=== PATIENT | male | born 1955 | race Caucasian/White ===

== ENCOUNTER 2016-11-25 21:57 | Observation (INO) | payer BC, SELFPAY ==
--- NOTE | ~2016-11-25 | HP ---
History And Physical [place] [id number] [facility] [place]. [address] NAME: MIKE DRISCOLL : 59 STATUS : ADM Samanta PAT#: [id number] AGE: 61 ADM/REG DATE : 11/25/16 MR#: [id number] REPORT SERV DATE: 11/26/16 DICTATED BY: JILLIAN THOMPSON DATE: 11/26/16 REPORT STATUS : Draft TRANSCRIBED BY: MODL DATE: 11/26/16 DATE OF ADMISSION: 11/25/2016 POINT OF ENTRY: [facility] Emergency Department. PRIMARY CLEARING INSPECTOR: Dr. Moore. CHIEF COMPLAINT: Chest pain. HISTORY OF PRESENT ILLNESS: Mr. Driscoll is a 61-year-old gentleman with history of hypertension, hyperlipidemia as well as coronary artery disease with recent rdb-DU-fyhepahlx myocardial infarction, who presents to the emergency department today with the acute onset of right-sided chest pain, beginning Saturday morning. The patient was recently admitted to the Cardiology Service in end of August for reports of right-sided chest pain. At that time, he was found to have mild troponin elevation of approximately 0.14. 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 Aggressive medical management was recommended. The patient states that since then he has been compliant with his medications and has actually quit smoking. He developed the acute onset of right-sided chest pain, described as pressure as well as like a fist in his chest. He denies any radiation associated shortness of breath, diaphoresis, nausea, or palpitations. He states that the location and description of the pain are very similar to what occurred in August. Initial evaluation in the emergency department notable for EKG that was nonischemic. Troponin mildly elevated at 0.08. Remainder of his labs were unremarkable. CT scan of the abdomen and pelvis was undertaken given reports of right-sided chest pain to rule out a GI etiology. It was notable for infrarenal abdominal aortic aneurysm of approximately 4.5 cm that is thrombosed and/or occluded in the lumen below the level of the left renal artery. The patient was subsequently admitted to the Hospitalist Service for further evaluation and management. The patient denies any fevers, night sweats, chills, cough, sputum production, shortness of breath, abdominal pain, nausea, vomiting, diarrhea, constipation, dysuria, melena, or hematochezia. When queried specifically, he does admit to what appears to be some lower extremity claudication with exertion as well as he does readily admit to some longstanding troubles with erectile dysfunction. COMPREHENSIVE REVIEW OF SYSTEMS: Otherwise negative, unless listed in the history of present illness. PREVIOUS MEDICAL HISTORY: History And Physical [address] [address] NAME: MIKE DRISCOLL : 59 STATUS : ADM Samanta PAT#: [id number] AGE: 61 ADM/REG DATE : 11/25/16 MR#: [id number] REPORT SERV DATE: 11/26/16 DICTATED BY: JILLIAN THOMPSON DATE: 11/26/16 REPORT STATUS : Draft TRANSCRIBED BY: MAI DATE: 11/26/16 1. Hypertension. 2. Hyperlipidemia. 3. Coronary artery disease with recent suv-HT-olgwcdfen myocardial infarction. SURGICAL HISTORY: Bilateral inguinal hernia repair as a child. ALLERGIES: REPORTEDLY TO STATINS. HOME MEDICATIONS: Pending at the time of dictation. SOCIAL HISTORY: He is a former smoker, quit in August after his admission to our hospital. Does binge drink on the weekends. Drinks approximately eight to nine beers on Saturday and Saturday nights. Denies illicits. FAMILY MEDICAL HISTORY: Mother with history of hiatal hernia. Father with history of alcoholism. Siblings with coronary artery disease and peripheral vascular disease. LABORATORY DATA AND IMAGIN. White count is 8.5, hemoglobin is 14.0, hematocrit is 40.7, and platelet count is 187. INR 1.0. 2. Sodium is 141, potassium 4.3, chloride 103, carbon dioxide 32, BUN 14, creatinine 0.98, glucose is 107, calcium is 8.3, magnesium is 2.0. 3. Lipase is 91. 4. Troponin is 0.08. 5. EKG per my review shows normal sinus rhythm. No evidence of any acute ischemia or infarction. 6. Urinalysis: Specific gravity is 1.010. No evidence of any infection. 7. Chest x-ray per my review shows no acute cardiopulmonary abnormality. 8. CT scan of the abdomen and pelvis shows infrarenal abdominal aortic aneurysm, approximately 4.5 cm in diameter that is occluded and/or thrombosed in the lumen at the level below the left renal artery. PHYSICAL EXAMINATION: VITAL SIGNS: Temperature is 97.8 degrees Fahrenheit, pulse is 73, respirations 18, saturating 96% on room air, blood pressure is 144/79. On recheck, it is now 122/73. GENERAL: The patient is awake, alert, in no acute distress, resting comfortably in bed. He is a well-developed, well-nourished, elderly male. HEENT: Atraumatic and normocephalic. Moist mucous membranes. Pupils equal, round, reactive to light and accommodation. Extraocular movements are intact. No scleral icterus. NECK: No jugular venous distention. No carotid bruits. CARDIAC: Regular rate and rhythm. No murmurs, rubs, or gallops. Normal S1 and S2. LUNGS: Clear to auscultation bilaterally. No wheezes, rhonchi, or crackles. ABDOMEN: Soft, nontender, and nondistended with good bowel sounds. No rebound, guarding, or rigidity. I do not appreciate any palpable pulsation in the lower abdomen or any abdominal bruits. EXTREMITIES: Warm and well perfused. No cyanosis, clubbing, or edema. He has 1+ DP/PT pulses. History And Physical [address] [address] NAME: MIKE DRISCOLL : 59 STATUS : ADM Samanta PAT#: [id number] AGE: 61 ADM/REG DATE : 11/25/16 MR#: [id number] REPORT SERV DATE: 11/26/16 DICTATED BY: JILLIAN THOMPSON DATE: 11/26/16 REPORT STATUS : Draft TRANSCRIBED BY: MODHarsh DATE: 11/26/16 SKIN: Warm and dry, except for noted above. PSYCH: Affect appropriate. NEURO: Alert and oriented x3. Cranial nerves II through XII grossly intact. Speech is normal. Gait not assessed. ASSESSMENT: Mr. Driscoll is a 61-year-old gentleman with a history of coronary artery disease with recent jvw-VV-tnojrpgqq myocardial infarction, being medically managed, who presents with recurrent right-sided chest pain. PROBLEM LIST: 1. Wol-GV-iamvcbzon myocardial infarction. 2. Occluded infrarenal abdominal aortic aneurysm. 3. Hypertension. 4. Hyperlipidemia. PLAN: 1. Oyc-QX-gtovaecju myocardial infarction. We will trend out q.6 hours cardiac enzymes. We will continue aspirin as well as p.r.n. nitroglycerin. We will resume his home medications once confirmed. We will consult the patient's primary cable operator for assistance. However, given recent cardiac catheterization showing mild nonobstructive coronary artery disease other than the chronic total occlusion of the mid RCA, I will not currently heparinize this patient at this time. 2. Occluded infrarenal abdominal aortic aneurysm. Dr. Perea of Vascular Surgery was contacted by the ER. He recommends no immediate intervention. We will follow up his consultation recommendations in the morning. 3. Hypertension. Continue the patient's home medications once confirmed. 4. Hyperlipidemia. Continue the patient's home medications once confirmed. 5. DVT prophylaxis. Lovenox subcutaneous. CODE STATUS: The patient wished to be full code. JCB/MODL Jillian Thompson MD / [id number] CC: An Wesley M.D. Murtaza Oliver M.D.
--- NOTE | ~2016-11-25 | DS ---
Discharge Summary [facility] [address] [place]. [address] NAME: MIKE DRISCOLL : 59 STATUS : DIS Samanta PAT#: [id number] AGE: 61 ADM/REG DATE : 11/25/16 MR#: [id number] REPORT SERV DATE: 11/27/16 DICTATED BY: AN KNOWLES DATE: 11/26/16 REPORT STATUS : Draft TRANSCRIBED BY: MODL DATE: 11/26/16 ADMISSION DATE: 11/25/2016 DISCHARGE DATE: 11/26/2016 DIAGNOSES OF DISCHARGE: 1. Right flank pain radiating to the back, likely musculoskeletal, resolved. 2. History of coronary artery disease with prior ldk-PD-znauiwi myocardial infarction with troponin elevation, unchanged, likely chronic. 3. Abdominal aortic aneurysm, infrarenal, occluded. No intervention from vascular perspective. Follow up as an outpatient. 4. Hyperlipidemia. 5. Hypertension. 6. Hypothyroidism. CONSULTANTS ON THE CASE: Dr. Tati Moore, Cardiology, as well as Dr. Baldomero Perea, Vascular. PROCEDURES DONE DURING THIS HOSPITALIZATION: None. TESTS DONE DURING THIS HOSPITALIZATION: Include a chest x-ray, portable, performed on 11/25/2016 showing no radiographic evidence of any acute process. CT scan of the abdomen and pelvis without contrast on 11/25/2016 showed a contracted gallbladder, but no radiodense gallstones. There was an infrarenal abdominal aortic aneurysm measuring up to 4.5 cm in diameter with an occluded infrarenal abdominal aorta and small fat-containing umbilical hernia. The patient's cardiac enzymes were CPK 114; MB 1.8; and troponin I 0.08, 0.07, chronically elevated. White count was normal. UA has been negative. HISTORY OF PRESENT ILLNESS: This is a very pleasant 61 years old gentleman, patient of Dr. Kevin, his primary care provider, as well as Dr. Tati Moore, filer finish, with a prior past medical history significant for hypertension, hyperlipidemia, also tobacco abuse. The patient has been presenting to [facility] Emergency Room on 11/26/2016 with right flank pain radiated under the shoulder blade, started Saturday morning like something was rubbing up and down, stopped after one hour, and then returned, and as a result, he went to [facility] Emergency Room. He has received Dilaudid and the pain was completely relieved. It is important to note that the patient has been admitted to Cardiology Service in August with non-ST-CA. 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 Aggressive medical management has been recommended at that time. For further details, please see history and physical of Dr. Familia Dumont. The patient had CT of the abdomen and pelvis, which noted an infrarenal abdominal aneurysm of approximately 4.5 cm that is thrombosed and occluded in the lumen below the level of the left renal artery. HOSPITAL COURSE: The patient has been admitted to Hospitalist Service. For further details, please see history and physical exam of Dr. Familia Dumont. The patient has been admitted Discharge Summary [address] [address] NAME: MIKE DRISCOLL : 59 STATUS : DIS Samanta PAT#: [id number] AGE: 61 ADM/REG DATE : 11/25/16 MR#: [id number] REPORT SERV DATE: 11/27/16 DICTATED BY: AN KNOWLES DATE: 11/26/16 REPORT STATUS : Draft TRANSCRIBED BY: MAI DATE: 11/26/16 and consults with Cardiology as well as Vascular, Dr. Perea has been requested. The patient has been seen in consult by Dr. Tati Moore, who recommended continued medical management for coronary artery disease. He reviewed the p.r.n. use of nitroglycerin for chest pain and also went to seek medical care. Regarding his AAA, the patient had an infrarenal occluded lumen of the abdominal aorta as well as a fusiform aneurysmal change in the infrarenal abdominal aorta measuring up to 4.5 cm in diameter. No intervention from vascular perspective has been recommended as well. On 11/26/2016, the patient has been ready for discharge from the Cardiology and Vascular standpoint. DISCHARGE MEDICATIONS: The patient has been advised to continue his home medications including aspirin 81 p.o. daily, Lipitor 40 mg p.o. daily, Wellbutrin 120 b.i.d., Cardizem CD 240 p.o. daily, levothyroxine 137 mcg p.o. daily, lisinopril 40 p.o. daily, Lopressor 50 b.i.d., niacin 1500 mg p.o. daily, nitroglycerin p.r.n., Nexium 20 p.o. daily, iron sulfate 325 p.o. daily, Ultram 50 mg p.o. q.6 hours p.r.n. pain #20 no refills. FOLLOWUP: The patient has been advised to follow up with his primary care provider, Dr. George Kevin, in one week after discharge. We will arrange Vascular followup with Dr. Baldomero Perea in about four to six weeks after discharge and Cardiology followup with Dr. Tati Moore [facility] in four to six weeks after discharge. That has been discussed extensively with the patient. All the questions have been answered in full. CF/MODL An Knowles M.D. / [id number] CC: Murtaza Delarosa M.D. Lisa Gail Carkner, M.D. Charles Scott Joels, M.D.
--- NOTE | ~2016-11-25 | CN ---
Consultation Report [facility] [address] [place]. [address] NAME: MIKE DRISCOLL : 59 STATUS : DIS Samanta PAT#: [id number] AGE: 61 ADM/REG DATE : 11/25/16 MR#: [id number] REPORT SERV DATE: 11/27/16 DICTATED BY: DATE: REPORT STATUS : Draft TRANSCRIBED BY: MODL DATE: 11/26/16 CONSULTATION DATE OF CONSULTATION: 11/26/2016 CHIEF COMPLAINT/REASON FOR VISIT: Right flank pain. HISTORY OF PRESENT ILLNESS: The patient is a very pleasant 61-year-old gentleman, who is familiar to me from clinic. 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 He was experiencing right flank pain on the evening of admission. He stated that it radiated to his right shoulder blade. It stopped within an hour and then returned. He went to the emergency department and was given IV Dilaudid, which resolved his flank pain. He had a CT scan of the abdomen and pelvis, which demonstrated a 4.5 cm infrarenal abdominal aortic aneurysms with occluded lower aorta. He was evaluated by Vascular Surgery, Dr. Perea, this morning and found that since the patient is asymptomatic, there would be no intervention at this time. He has followup arranged with Dr. Perea on an outpatient basis. The patient is already on full-dose statin therapy. PAST MEDICAL HISTORY: 1. Coronary atherosclerosis with chronic total occlusion of the mid right coronary artery and a small PDA which fills from wzyc-tt-imhog collaterals. 2. 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 3. Hypertension. 4. Hyperlipidemia. SOCIAL HISTORY: The patient recently quit smoking. He does drink two alcoholic beverages per week. He does not use extracurricular drugs. FAMILY HISTORY: Noncontributory. ALLERGIES: NO KNOWN DRUG ALLERGIES. MEDICATIONS: Current inpatient medications include: 1. Aspirin 81 mg p.o. daily. 2. Lipitor 80 mg p.o. daily. 3. Cardizem CD 240 mg p.o. daily. 4. Metoprolol 12.5 mg p.o. b.i.d. 5. Niaspan. 6. Wellbutrin. REVIEW OF SYSTEMS: All systems were reviewed and are negative, except for as dictated in the HPI. PHYSICAL EXAMINATION: Consultation Report [place] [id number] [place]. [address] NAME: MIKE DRISCOLL : 59 STATUS : DIS Samanta PAT#: [id number] AGE: 61 ADM/REG DATE : 11/25/16 MR#: [id number] REPORT SERV DATE: 11/27/16 DICTATED BY: DATE: REPORT STATUS : Draft TRANSCRIBED BY: MODL DATE: 11/26/16 VITAL SIGNS: Blood pressure 125 to 144 over 60 to 79, pulse is between 58 and 69 beats per minute, respirations 18, oxygen saturations 94% on room air. GENERAL: Mr. Driscoll is a pleasant 61-year-old gentleman. He appears mildly older than his stated age. NECK: No jugular venous distention. No carotid bruits. HEART: Regular rate and rhythm. Normal S1 and S2. No murmurs, rubs, or gallops auscultated. LUNGS: Clear to auscultation in all urena. ABDOMEN: Obese. I could not appreciate abdominal bruits. The abdominal aorta is nonpalpable. EXTREMITIES: Warm. I could not appreciate lower extremity edema. Posterior tibial pulses are diminished bilaterally. MUSCULOSKELETAL: I could not appreciate clubbing or cyanosis of the digits. NEUROLOGIC: I could not appreciate focal neurologic deficits. LABORATORY RESULTS: Note potassium of 4.3, a BUN of 14, a creatinine of 0.98. Troponin of 0.08, unchanged from admission. EKG demonstrated normal sinus rhythm without ischemic ST-T segment changes. There was no significant change from a previous EKG performed on 10/19/2016 when the patient was seen in clinic. CT scan of the abdomen and pelvis demonstrated an infrarenal abdominal aortic aneurysm of 4.5 cm, which has been thrombosed without acute intervention needed. IMPRESSION REPORT AND PLAN: 1. Right flank pain without evidence of chest pain or other cardiac etiology. 2. Abdominal aortic aneurysm, seen by and followed by Dr. Perea. 3. Abnormal cardiac biomarker without rise and fall, likely chronically elevated. 4. Known history of coronary artery disease, as dictated above. 5. Anomalous origin of the circumflex coronary artery as above, currently asymptomatic. 6. Hypertension. 7. Hyperlipidemia. 8. Tobacco abuse. RECOMMENDATIONS: 1. Continue secondary prevention with the patient's home regimen of atorvastatin, diltiazem, lisinopril, metoprolol, and low-dose aspirin. There was not an indication for additional cardiac tests and studies at this time. 2. I will follow up with the patient in clinic in approximately four to six weeks' time. It has been my pleasure to participate in the care of this patient. EDITH/MAI Tati Balderas Consultation Report [address] [address] NAME: MIKE DRISCOLL : 59 STATUS : DIS Samanta PAT#: [id number] AGE: 61 ADM/REG DATE : 11/25/16 MR#: [id number] REPORT SERV DATE: 11/27/16 DICTATED BY: DATE: REPORT STATUS : Draft TRANSCRIBED BY: MODL DATE: 11/26/16 Murtaza Moore / [id number] CC: Murtaza Delarosa M.D.
[~2016-11-25 21:57] MED LIST: ASAB PO; CARTIA XT240 MG/24 PO; FERROUS SULF325 M1 PO; LIPITOR40 PO; LISINOPRIL40 MG PO; LIVALO2 MG PO; LOP25 PO; NEXIUM20 M1 PO; NIASPAN500 PO; NTG150 SL; SYNTHROID137 MCG PO; TYLENOL PM PO; WELCHOL 625 MG625 MG PO
[2016-11-25 22:35] LABS: BASOPHILS 0.1 %; BASOPHILS ABSOLUTE 0.01 10/3/uL (0.0-0.16); EOSINOPHILS ABSOLUTE 0.25 10/3/uL (0.0-0.53); ER CBC TAT 0 Hrs 05 Mins; HEMATOCRIT 40.7 % (40.0-51.0); IMMATURE GRANULOCYTES 0.4 %; IMMATURE GRANULOCYTES ABSOLUTE 0.03 10/3/uL (0.0-0.11); LYMPHOCYTES 32.2 %; LYMPHOCYTES ABSOLUTE 2.73 10/3/uL (0.67-4.30); MEAN CORPUS HGB CONC 34.4 g/dL (32.0-36.0); MEAN CORPUSCULAR HEMOGLOB 32.7 pg (26.0-34.0); MEAN CORPUSCULAR VOLUME 95.1 fL (80-100); MEAN PLATELET VOLUME 9.7 fL (9.2-13.0); MONOCYTES 8.1 %; MONOCYTES ABSOLUTE 0.69 10/3/uL (0.21-1.20); NEUTROPHILS 56.2 %; NEUTROPHILS ABSOLUTE 4.76 10/3/uL (2.02-8.40); PLATELET COUNT 187 10/3/uL (150-400); RBC DISTRIBUTION WIDTH 13.3 % (12.0-16.0); RED CELL COUNT 4.28 10/6/uL (4.7-6.1); WHITE BLOOD CELLS 8.5 10/3/uL (4.5-10.5)
[2016-11-25 22:36] LABS: MANUAL DIFF NO %
[2016-11-25 22:41] LABS: PARTIAL THROMBO TIME 26.3 SEC (22.5-37.2); PROTIME (NOT ORD) 13.4 SEC (12.0-14.5)
[2016-11-25 22:50] LABS: CALCIUM, SERUM 8.3 MG/DL (8.5-10.4); CHLORIDE, SERUM 103 MMOL/L (96-112); CO2 (CARBON DIOXIDE) 32 MMOL/L (24-34); CREATININE 0.98 MG/DL (0.70-1.30); GFR AFRICAN AMERICAN 97 ML/MIN (>=60); GFR NON AFRICAN AMERICAN 84 ML/MIN (>=60); GLUCOSE, SERUM 107 MG/DL (60-99); POTASSIUM, SERUM 4.3 MMOL/L (3.5-5.3); SODIUM, SERUM 141 MMOL/L (135-148)
[2016-11-25 22:51] LABS: BUN (BLOOD UREA NITROGEN) 14 MG/DL (6-23)
[2016-11-25 22:52] LABS: CHEST PAIN PROFILE TAT 0 Hrs 22 Mins; TROPONIN I 0.08 NG/ML (<0.05)
[2016-11-26] MEDS ORDERED: FAMILY TO BRING (00:40)
[2016-11-26 00:45] LABS: ASCORBIC ACID (UR NOT ORDER) NEG (NEG); BILIRUBIN, URINE NEGATIVE (NEG); ER URINALYSIS TAT 0 Hrs 05 Mins; KETONE, URINE NEGATIVE (NEG); LEUKOCYTE ESTERASE(NOT OR NEG (NEG); NITRITE (URINE) NEG (NEG); WBC (NOT ORDERED) (RFLEX) < 1 (0-5)
[2016-11-26] MEDS ORDERED: NIACIN 500 (01:52)
[2016-11-26] MEDS ORDERED: CARTIA XT240 MG/24 PO (01:52)
[2016-11-26] MEDS ORDERED: LOP50 PO (01:53)
[2016-11-26] MEDS ORDERED: NIASPAN500 PO (01:53)
[2016-11-26] MEDS ORDERED: LISINOPRIL40 MG PO (01:54)
[2016-11-26] MEDS ORDERED: LIPITOR40 PO (01:54)
[2016-11-26] MEDS ORDERED: NITROQUICK0.4 MG SL (01:55)
[2016-11-26] MEDS ORDERED: LEVOTHYROXIN137 MCG PO (01:55)
[2016-11-26] MEDS ORDERED: WELLSR150 PO (01:55)
[2016-11-26 05:22] LABS: CPK 115 U/L (0-200)
[2016-11-26 05:25] LABS: CK-MB 2.1 NG/ML; TROPONIN I 0.08 NG/ML (<0.05)
[2016-11-26] MEDS ORDERED: ASAB PO (10:11)
[2016-11-26 10:57] LABS: CPK 114 U/L (0-200)
[2016-11-26 10:58] LABS: CK-MB 1.8 NG/ML; TROPONIN I 0.07 NG/ML (<0.05)
[2016-11-26] MEDS ORDERED: FERROUS SULF325 M1 PO (12:12)
[2016-11-26] MEDS ORDERED: NEXIUM20 M1 PO (12:12)
[2016-11-26] MEDS ORDERED: ULTRAM50 PO (15:03)
== END 2016-11-26 15:56 | disposition home or self-care (01) ==
LOC: ER 21:57 → 5NO 23:59
PROVIDERS: Emergency Medicine; Internal Medicine
DX: R10.9 Unspecified abdominal pain (principal); M54.9 Dorsalgia, unspecified; I71.4 Abdominal aortic aneurysm, without rupture; I25.10 Atherosclerotic heart disease of native coronary artery without angina pectoris; I25.2 Old myocardial infarction; I10 Essential (primary) hypertension; E78.5 Hyperlipidemia, unspecified; R06.83 Snoring; E03.9 Hypothyroidism, unspecified; Q24.5 Malformation of coronary vessels; Z87.891 Personal history of nicotine dependence; Z79.82 Long term (current) use of aspirin; Z79.899 Other long term (current) drug therapy; Z88.8 Allergy status to other drugs, medicaments and biological substances
CPT/HCPCS: 71010; 74177; 80048; 81001; 82550; 82553; 83690; 83735; 84484; 85025; 85610; 85730; 93005; 96372; 96374; 96375; 99285; A9270-GY; G0378; J1170; J2405